=== PATIENT | female | born 1995 | race African-American/Black ===

== ENCOUNTER 2017-07-19 15:03 | Emergency (ER) | payer MEDICAID ==
[~2017-07-19] VITALS: Ht 154.9 cm; Wt 59.1 kg
[~2017-07-19 15:03] MED LIST: COLACE 100100 MG/CAP PO; IRON325 M1 PO; MOTRIN 800800 MG/TAB PO; PERCOCET 325 MG1 TA2 PO; PHENERGAN 25 TA25 MG PO; PHENERGAN25 MG RC; PRENATAL1 TA1 PO; PRENATAL1 TA5; PROMETHAZINE12.5 M5 PO
[2017-07-19 16:44] LABS: BASO % 0.3 % (0.0-2.0); EOS % 0.1 % (0-4.0); GRAN # 5.8 (1.4-6.5); GRAN % 85.9 % (42.2-75.2); HEMATOCRIT 38.4 % (37.0-47.0); HEMOGLOBIN 13.1 g/dl (12.5-16.0); LYMPH # 0.5 (1.2-3.4); MEAN CELL VOLUME 89 fl (80.0-100.0); MEAN CORPUSCULAR HEMOGLOBIN 30 pg (27.0-31.0); MEAN CORPUSCULAR HGB CONC 34 g/dl (33.0-37.0); MEAN PLATELET VOLUME 9.8 fl (7.4-10.4); MONO # 0.4 (0.1-0.6); MONO % 5.6 % (1.7-9.3); PLATELET COUNT 234 K/mm3 (130-400); RED BLOOD COUNT 4.34 M/mm3 (4.10-5.30); REDCELL DISTRIBUTION WIDTH-CV 11.9 % (11.5-14.5)
[2017-07-19 17:04] LABS: ALBUMIN 4.6 gm/dL (3.5-5.0); BILIRUBIN,TOTAL 0.4 mg/dL (0.0-1.0); C-REACTIVE PROTEIN 1.2 mg/dL (0.0-0.9); CALCIUM 9.4 mg/dL (8.4-10.2); CREATININE, serum 0.72 mg/dL (0.52-1.25); POTASSIUM 3.8 mmol/L (3.4-5.0); TOTAL PROTEIN 7.8 gm/dL (6.4-8.2)
[2017-07-19 17:46] LABS: STREP SCREEN NEGATIVE
[2017-07-19 17:53] LABS: INFLUENZA A POSITIVE; INFLUENZA B NEGATIVE
[2017-07-19] MEDS ORDERED: TAMIFLU 75MG75 MG PO (17:57)
[2017-07-19 18:00] LABS: COLLECTION METHOD CLEAN CATCH
[2017-07-19] MEDS ORDERED: ZOFRAN ODT4 MG PO (18:03)
[2017-07-19 18:10] LABS: MUCOUS Present /lpf; PH 6 (5-8); SQUAMOUS EPITHELIAL 0-2 /hpf; URINE APPEARANCE Clear; URINE BACTERIA Rare /hpf; URINE BILIRUBIN Negative (NEGATIVE); URINE BLOOD Negative (NEGATIVE); URINE COLOR Yellow; URINE GLUCOSE Negative (NEGATIVE); URINE KETONE 2+ (NEGATIVE); URINE LEUKOCYTE ESTERASE Negative (NEGATIVE); URINE NITRATE Negative (NEGATIVE); URINE PROTEIN(semi-quant) Negative (NEGATIVE); URINE RBC 0-2 /hpf
[2017-07-19 20:19] VITALS: BP 113/65; PULSE 97; TEMP 99.2
== END 2017-07-19 20:22 | disposition home or self-care (01) ==
LOC: COL.ER 15:03
PROVIDERS: Family Medicine
DX: J10.1 Influenza due to other identified influenza virus with other respiratory manifestations (principal); E86.0 Dehydration
CPT/HCPCS: J1170; J2550; J7030; J7050; Q9967

== ENCOUNTER 2017-12-02 18:00 | Emergency (ER) | payer MEDICAID ==
[~2017-12-02] VITALS: Ht 157.5 cm; Wt 60.9 kg
[~2017-12-02 18:00] MED LIST changes: +TAMIFLU 75MG75 MG PO; +ZOFRAN ODT4 MG PO
[2017-12-02 18:12] VITALS: BP 165/59; TEMP 98.8
[2017-12-02 18:51] LABS: COLLECTION METHOD CLEAN CATCH
[2017-12-02 18:58] LABS: MUCOUS Present /lpf; PH 7 (5-8); SQUAMOUS EPITHELIAL 0-2 /hpf; URINE APPEARANCE Hazy; URINE BACTERIA Rare /hpf; URINE BILIRUBIN Negative (NEGATIVE); URINE BLOOD Negative (NEGATIVE); URINE COLOR Yellow; URINE GLUCOSE Negative (NEGATIVE); URINE KETONE Negative (NEGATIVE); URINE LEUKOCYTE ESTERASE Negative (NEGATIVE); URINE NITRATE Negative (NEGATIVE); URINE PROTEIN(semi-quant) Negative (NEGATIVE); URINE RBC 0-2 /hpf; URINE UROBILINOGEN Negative (NEGATIVE)
[2017-12-02 21:20] VITALS: PULSE 76
== END 2017-12-02 21:13 | disposition home or self-care (01) ==
LOC: COL.ER 18:00
PROVIDERS: Nurse Practitioner Primary Care
DX: M54.5 Low back pain (principal); X50.0XXA Overexertion from strenuous movement or load, initial encounter
CPT/HCPCS: J1170; J1885

== ENCOUNTER 2018-07-30 13:34 | Emergency (ER) | payer MEDICAID ==
[~2018-07-30] VITALS: Ht 154.9 cm; Wt 64.1 kg
[2018-07-30 13:39] VITALS: TEMP 98.9
[2018-07-30 14:20] LABS: COLLECTION METHOD CLEAN CATCH
[2018-07-30 14:28] LABS: MUCOUS Present /lpf; PH 5 (5-8); SQUAMOUS EPITHELIAL 0-2 /hpf; URINE APPEARANCE Clear; URINE BACTERIA None Seen /hpf; URINE BILIRUBIN Negative (NEGATIVE); URINE BLOOD Negative (NEGATIVE); URINE COLOR Yellow; URINE GLUCOSE Negative (NEGATIVE); URINE KETONE 2+ (NEGATIVE); URINE LEUKOCYTE ESTERASE Negative (NEGATIVE); URINE NITRATE Negative (NEGATIVE); URINE PROTEIN(semi-quant) 1+ (NEGATIVE); URINE RBC 0-2 /hpf; URINE UROBILINOGEN Negative (NEGATIVE)
[2018-07-30 15:22] VITALS: BP 120/68; PULSE 76
[2018-07-30] MEDS ORDERED: PHENERGAN12.5 MG/SU RC (15:25)
== END 2018-07-30 15:24 | disposition home or self-care (01) ==
LOC: COL.ER 13:34
PROVIDERS: Physician Assistant
DX: O21.9 Vomiting of pregnancy, unspecified (principal); O26.891 Other specified pregnancy related conditions, first trimester; E86.0 Dehydration; R10.9 Unspecified abdominal pain; Z3A.08 8 weeks gestation of pregnancy
CPT/HCPCS: J2550; J7030

== ENCOUNTER 2018-08-09 02:12 | Emergency (ER) | payer MEDICAID ==
[~2018-08-09] VITALS: Ht 154.9 cm; Wt 64.1 kg
[~2018-08-09 02:12] MED LIST changes: +PHENERGAN12.5 MG/SU RC
[2018-08-09 02:21] VITALS: TEMP 97.7
[2018-08-09] MEDS ORDERED: REGLAN 5MG T5 MG/TAB PO (03:07)
[2018-08-09 03:10] LABS: BASO % 0.1 % (0.0-2.0); EOS % 0.1 % (0-4.0); GRAN # 12.4 (1.4-6.5); GRAN % 85.2 % (42.2-75.2); HEMATOCRIT 39.2 % (37.0-47.0); HEMOGLOBIN 13.8 g/dl (12.5-16.0); LYMPH # 1.5 (1.2-3.4); MEAN CELL VOLUME 85 fl (80.0-100.0); MEAN CORPUSCULAR HEMOGLOBIN 30 pg (27.0-31.0); MEAN CORPUSCULAR HGB CONC 35 g/dl (33.0-37.0); MEAN PLATELET VOLUME 10.3 fl (7.4-10.4); MONO # 0.6 (0.1-0.6); MONO % 4.3 % (1.7-9.3); PLATELET COUNT 190 K/mm3 (130-400); REDCELL DISTRIBUTION WIDTH-CV 11.9 % (11.5-14.5)
[2018-08-09 03:23] LABS: ALBUMIN 4.5 gm/dL (3.5-5.0); BILIRUBIN,TOTAL 1.3 mg/dL (0.0-1.0); C-REACTIVE PROTEIN 1.4 mg/dL (0.0-0.9); CALCIUM 9.8 mg/dL (8.4-10.2); CREATININE, serum 0.64 mg/dL (0.52-1.25); POTASSIUM 3.6 mmol/L (3.4-5.0); TOTAL PROTEIN 8.1 gm/dL (6.4-8.2)
[2018-08-09 04:14] LABS: COLLECTION METHOD CLEAN CATCH
[2018-08-09 04:20] LABS: MUCOUS Present /lpf; PH 5 (5-8); SQUAMOUS EPITHELIAL 0-2 /hpf; URINE APPEARANCE Hazy; URINE BACTERIA Rare /hpf; URINE BILIRUBIN Positive (NEGATIVE); URINE BLOOD Negative (NEGATIVE); URINE COLOR Amber; URINE GLUCOSE Negative (NEGATIVE); URINE KETONE 2+ (NEGATIVE); URINE LEUKOCYTE ESTERASE Trace (NEGATIVE); URINE NITRATE Negative (NEGATIVE); URINE PROTEIN(semi-quant) 2+ (NEGATIVE); URINE UROBILINOGEN >=4.0 mg/dL (NEGATIVE)
[2018-08-09] MEDS ORDERED: MACROBID 1100 MG/CAP PO (05:35)
[2018-08-09] MEDS ORDERED: PHENERGAN25 MG RC (05:42)
[2018-08-09] MEDS ORDERED: REGLAN 10MG10 MG/TAB PO (05:42)
[2018-08-09 06:05] VITALS: BP 117/75; PULSE 74
== END 2018-08-09 06:07 | disposition home or self-care (01) ==
LOC: COL.ER 02:12
PROVIDERS: Physician Assistant
DX: O23.41 Unspecified infection of urinary tract in pregnancy, first trimester (principal); O21.9 Vomiting of pregnancy, unspecified; Z3A.09 9 weeks gestation of pregnancy
CPT/HCPCS: J2765; J7030

== ENCOUNTER 2019-03-10 18:24 | Outpatient (CLI) | payer MEDICAID ==
[~2019-03-10] VITALS: Ht 154.9 cm; Wt 68.2 kg
[~2019-03-10 18:24] MED LIST changes: +MACROBID 1100 MG/CAP PO; +REGLAN 10MG10 MG/TAB PO; +REGLAN 5MG T5 MG/TAB PO
--- NOTE | 2019-03-10 18:35 | NUR ---
Pt arrived on unit with concern for SROM. Pt reports no contractions, denies vaginal bleeding and reports normal movement. EFM and toco monitors started. Vital signs WNL. SVE by this RN 2-/2. Amnio-test negative. Information reviewed with Dr. Mcmahon.
[2019-03-10 18:45] VITALS: TEMP 98
[2019-03-10] MEDS ORDERED: VALTREX 50500 MG/TAB PO (18:52)
[2019-03-10] MEDS ORDERED: PRENATAL (18:52)
--- NOTE | 2019-03-10 19:00 | NUR ---
Orders for discharge home received. Discharge instructions and precautions reviewed with pt. Pt verbalized an understanding, agreed with the plan and states no questions or concerns at this time.
[2019-03-10 19:06] VITALS: BP 123/76; PULSE 85
== END 2019-03-10 19:20 | disposition home or self-care (01) ==
LOC: LDRO 18:24 → LDR 18:30 → LDRO 19:20
DX: Z34.93 Encounter for supervision of normal pregnancy, unspecified, third trimester (principal); Z3A.39 39 weeks gestation of pregnancy
CPT/HCPCS: OP

== ENCOUNTER 2019-03-19 07:15 | Inpatient (IN) | payer MEDICAID ==
[~2019-03-19] VITALS: Ht 157.5 cm; Wt 68.6 kg
[2019-03-19] VITALS (42 sets, daily range): BP systolic 90–129; BP diastolic 52–79; PULSE 56–108; TEMP 97.6–98.3
[~2019-03-19 07:15] MED LIST changes: +PRENATAL; +VALTREX 50500 MG/TAB PO
--- NOTE | 2019-03-19 07:30 | NUR ---
Patient ambulatory to [facility]3 with significant other, changed into gown, FHR/TOCO monitors placed and explained. Patient states she "thought her water had broke a couple of days ago but ER said it wasnt, and have had some discharge and dont know if its my water or not", "had some contractions last night, but kind of went away", denies any vaginal bleeding. Plan of care discussed. 0750: IV started in right forearm per Shruthi RN, blood obtained and to lab, LR infusing. Assessment completed and consents gone over and signed/ packet give. 0810: Dr Linn at beside and assessing patient/FHR monitor. Patient updates physician on possible SROM and contractions last night. 0815: SVE per physician- /-1 and bag/membrane felt by physician. Dr. Linn orders to start pitocin and will be back around lunch hour for AROM.
[2019-03-19 08:37] LABS: BASO % 0.2 % (0.0-2.0); EOS # 0.2 (0.0-0.7); EOS % 1.6 % (0-4.0); GRAN % 60.9 % (42.2-75.2); HEMOGLOBIN 11.9 g/dl (12.5-16.0); LYMPH # 2.9 (1.2-3.4); LYMPH % 29.3 % (20.0-51.0); MEAN CELL VOLUME 91 fl (80.0-100.0); MEAN CORPUSCULAR HEMOGLOBIN 31 pg (27.0-31.0); MEAN CORPUSCULAR HGB CONC 34 g/dl (33.0-37.0); MEAN PLATELET VOLUME 10.5 fl (7.4-10.4); MONO # 0.7 (0.1-0.6); MONO % 7.4 % (1.7-9.3); PLATELET COUNT 266 K/mm3 (130-400); RED BLOOD COUNT 3.86 M/mm3 (4.10-5.30); REDCELL DISTRIBUTION WIDTH-CV 14.1 % (11.5-14.5)
--- NOTE | 2019-03-19 13:30 | NUR ---
Patient requesting epidural and Michelle HEATING AND COOLING TECHNICIAN notifed. 1355: Patient sitting up on edge of bed for placement. Seema Hernandez HEATING AND COOLING TECHNICIAN at bedside. Difficulty tracing FHR at this time due to maternal position. 1405: Single shot given and patient tolerates well. Patient repositioned and precautions gone over.
--- NOTE | 2019-03-19 16:25 | NUR ---
Dr. Linn at bedside and patient prepped for vaginal delivery. Anderson catheter removed and patient tolerates well. 1630: Pericare done and patient begins to push per orders. Varible deceleration noted and returns to baseline. 1635: Spontaneous vaginal delivery of head followed by body, infant bulb syringed by physician and placed on patients Marysol barrios RN assumes care of infant. Cord clamped by Dr. Linn and cut by FOB. Cord blood obtained. 1639: Spontaneous delivery of placenta and pitocin bolus started per protocol. Perineum intact and pericare done. Ice pack to perineum and patient repositioned, Fundal massage done/firm/bleeding WNL. Plan of care discussed.
[2019-03-20 04:06] VITALS: BP 88/50; PULSE 93; TEMP 98.3
[2019-03-20 06:43] LABS: HEMOGLOBIN 10.9 g/dl (12.5-16.0)
[2019-03-20 06:44] LABS: HEMATOCRIT 32.6 % (37.0-47.0)
[2019-03-20 09:25] VITALS: BP 104/78; PULSE 105; TEMP 97.7
--- NOTE | 2019-03-20 10:27 | NUR ---
Initial visit attempt; Patient indisposed, Tennis Director left card of congratulations for the of her son and information regarding the availability of spiritual care at [facility].
[2019-03-20 13:40] VITALS: BP 101/58; PULSE 68; TEMP 97.7
[2019-03-20 16:50] VITALS: BP 93/48; PULSE 88; TEMP 98.3
[2019-03-20 20:50] VITALS: BP 103/52; PULSE 91; TEMP 97.8
[2019-03-21 08:40] VITALS: BP 86/46; PULSE 71; TEMP 98.5
[2019-03-21] MEDS ORDERED: IBU600 MG PO (08:47)
[2019-03-21] MEDS ORDERED: PERCOCET 325 MG1 TA2 PO (08:47)
== END 2019-03-21 17:15 | disposition home or self-care (01) | DRG 806 ==
LOC: OB 07:15 → LDR 07:15 → OB 21:15
PROVIDERS: ADMIT Obstetrics & Gynecology
PROC: 10E0XZZ Delivery of Products of Conception, External Approach (ICD-10-PCS; principal; 2019-03-19)
DX: O99.824 Streptococcus B carrier state complicating childbirth (principal); O98.52 Other viral diseases complicating childbirth; Z37.0 Single live birth; Z3A.40 40 weeks gestation of pregnancy; O99.02 Anemia complicating childbirth; D64.9 Anemia, unspecified; O99.62 Diseases of the digestive system complicating childbirth; B00.9 Herpesviral infection, unspecified; K58.9 Irritable bowel syndrome, unspecified; O69.81X0 Labor and delivery complicated by cord around neck, without compression, not applicable or unspecified
CPT/HCPCS: J2540; J2590; J2795; J7120